=== PATIENT | male | born 1940 | race Caucasian/White ===

== ENCOUNTER → 2018-05-20 | Outpatient (CLI) | payer MEDICARE ==
[2018-05-20 10:20] LABS: Anion Gap 5 mmol/L; Blood Urea Nitrogen 19 mg/dL (9-20); Calcium 9.6 mg/dL (8.4-10.2); Carbon Dioxide 32 mmol/L (22-30); Chloride 104 mmol/L (98-107); Glucose 105 mg/dL (74-99); Potassium 4.2 mmol/L (3.5-5.1); Sodium 141 mmol/L (137-145)
--- NOTE | 2018-05-20 21:51 | MR ---
EXAMINATION TYPE: MR orbits wo/w con DATE OF EXAM: 05/20/2018 COMPARISON: NONE HISTORY: 77-year-old male Visual loss Technique: Multiplanar, multisequence images of the orbits were obtained before and after administrat ion of 11.5 mL intravenous Gadavist gadolinium contrast. FINDINGS: Midline sagittal images demonstrate the craniocervical junction to be normal. The ventricles are of normal caliber. There is an avidly enhancing extra-axial lesion along the superior right frontal convexity measuring 2.3 cm AP by 1.3 cm craniocaudal by 1.8 cm wide. This abuts the underlying brain parenchyma without a ny significant mass effect. Contiguous enhancing dural tail is present. There is at least moderate patchy and confluent T2 bright white matter change in both cerebral hemisp heres incompletely imaged, nonspecific, likely relating to changes of chronic small vessel ischemic d isease. The optic nerves are symmetrical bilaterally. There is no enlargement of extraocular muscles of orbits. Retrobulbar intra or extraconal mass is not seen. Preseptal or post septal orbital abnormality is not detected. Sella and cavernous sinuses appear normal. Trace mucosal thickening anterior ethmoid air cells and frontal sinuses. Post contrast images demonstrate no evidence of pathologic enhancement in the orbits or other abnorma l enhancing lesions within the intracranial cavity. IMPRESSION: 1. No specific MRI abnormality of the orbits, globes, or optic nerves. 2. Incidental 2.3 cm meningioma along the superior right frontal convexity. 3. Moderate atrophy and changes of chronic small vessel ischemic disease.
== END | disposition home or self-care (01) ==
LOC: RADMRIMAIN 09:41
PROVIDERS: ATTEND Ophthalmology
DX: D32.0 Benign neoplasm of cerebral meninges (principal); G31.9 Degenerative disease of nervous system, unspecified; I67.82 Cerebral ischemia; G20 Parkinson's disease
CPT/HCPCS: 80048; 70543; 36415; A9581